=== PATIENT | female | born 1975 | race Asian ===

== ENCOUNTER 2018-05-11 10:45 | Emergency (ER) | payer BC ==
[~2018-05-11] VITALS: Ht 157.5 cm; Wt 57.2 kg
[2018-05-11 12:27] LABS: BASOPHIL % 0.1 % (0-2); PLATELET COUNT 379 x10^3mcL (130-400); RED CELL DISTRIBUTION WIDTH 19.1 % (11.5-14.5)
[2018-05-11 12:28] LABS: rbc morphology (normal/abnorm) ABNORMAL (NORMAL)
[2018-05-11 12:29] LABS: CALCIUM 8.6 mg/dL (8.5-10.1); CARBON DIOXIDE 25.6 mmol/L (21-32); CHLORIDE SERUM 106 mmol/L (98-107); CREATININE SERUM 0.6 mg/dL (0.6-1.0); GFR1 > 60 mL/min; GLUCOSE SERUM 101 mg/dL (74-106); SODIUM SERUM 141 mmol/L (136-145)
[2018-05-11 12:33] LABS: ALBUMIN 3.9 g/dL (3.4-5.0); ALKALINE PHOSPHATASE 53 U/L (46-116); ALT/SGPT 18 U/L (14-59); AMYLASE 67 U/L (25-115); AST/SGOT 21 U/L (15-37); BILIRUBIN TOTAL 0.3 mg/dL (0.20-1.00); LIPASE 222 IU/L (73-393); TOTAL PROTEIN, SERUM 7.8 g/dL (6.4-8.2)
[2018-05-11 13:51] VITALS: BP 120/74
== END 2018-05-11 13:51 | disposition home or self-care (01) ==
LOC: ED 10:45
PROVIDERS: Emergency Medicine
DX: G44.209 Tension-type headache, unspecified, not intractable (principal); D50.9 Iron deficiency anemia, unspecified; R11.0 Nausea
CPT/HCPCS: J0780; J1885; J7030